=== PATIENT | female | born 1990 | race Caucasian/White ===

== ENCOUNTER 2021-08-06 19:38 | Emergency (ER) | payer OTHER, SELFPAY ==
[~2021-08-06] VITALS: Ht 152.4 cm; Wt 49.9 kg
[~2021-08-06 19:38] MED LIST: AMOX-423 PO
[2021-08-06 20:22] VITALS: BP_SYST 127
[2021-08-06] MEDS ORDERED: NACL 0.9% 1,000 ML IV ONE (20:45)
[2021-08-06] MEDS ORDERED: ONDANSETRON HCL 4 MG/2 ML VIAL IVP ONE (20:45)
[2021-08-06] MEDS ORDERED: MORPHINE 4 MG INJ. 4 MG/ML VIAL IVP ONE (20:45)
[2021-08-06] MEDS ORDERED: DIATR MEGLU/DIATRIZ SOD 30 ML SOLUTION PO ONE (20:58)
[2021-08-06 21:15] LABS: HEMOGLOBIN 12.1 g/dL (12.0-16.0); MEAN CORPUSCULAR HEMOGLOBIN 29 pg (27-31); MEAN CORPUSCULAR HGB CONC 34 % (32-36); MEAN CORPUSCULAR VOLUME 87 fL (79.0-98.0); PLATELET COUNT (AUTO) 727 K/uL (130-430); RED BLOOD CELL COUNT(AUTO) 4.15 MIL/uL (4.2-6.2); RED CELL DISTRIBUTION WIDTH 14.4 % (9.0-15.0)
--- NOTE | 2021-08-06 21:20 | NUR ---
Pt given medication Zofran and Morphine for nausea and pain and noted effective. Noted sleeping at this time. VSS. No signs of acute distress.
[2021-08-06 21:30] LABS: CALCIUM 10.2 mg/dL (8.4-11.0); CREATININE 0.59 mg/dL (0.55-1.30); POTASSIUM 4.8 mmol/L (3.5-5.1)
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
[2021-08-06 21:36] LABS: TOTAL BILIRUBIN 0.2 mg/dL (0.0-1.0)
[2021-08-06 21:42] LABS: ATYPICAL LYMPHOCYTES % 3 % (0-0); BAND % (MANUAL) 3 % (0-6); BASOPHILS % (MANUAL) 0 % (0-2); EOSINOPHILS % (MANUAL) 0 % (0-7); LYMPHOCYTES % (MANUAL) 17 % (20-46); MONOCYTES % (MANUAL) 6 % (0-11)
[2021-08-06 22:28] LABS: BILIRUBIN,URINE NEGATIVE (NEGATIVE); BLOOD, URINE NEGATIVE (NEGATIVE); CLARITY/URINE CLEAR (CLEAR); COLOR,URINE YELLOW (YELLOW); GLUCOSE,URINE NEGATIVE (NEGATIVE); KETONES,URINE NEGATIVE (NEGATIVE); LEUKOCYTE ESTERASE ,URINE NEGATIVE (NEGATIVE); NITRITE, URINE NEGATIVE (NEGATIVE); PH,URINE 6.5 (5.0-8.0); PROTEIN URINE NEGATIVE (NEGATIVE); UROBILINOGEN,URINE 0.2 (0.2-1.0)
[2021-08-06] MEDS ORDERED: PIPERACILLIN/TAZO 3.375 GM in NS 50 ML IV ONE (23:15)
[2021-08-06] MEDS ORDERED: NS 500 ML IV ONE (23:15)
[2021-08-06] MEDS ORDERED: PIPERACILLIN/TAZOBACTAM 3.375 GM/VIAL (ZOSYN) IV ONE (23:53)
--- NOTE | 2021-08-07 01:30 | NUR ---
Admit bed requested Patient will be admitted to care of . Admitted to Tele unit. Diagnosis Small Bowel Obstruction Inpatient (Yes or No) Y Observation (Yes or No) Y Orientation concerns or request close to nursing station (Yes or No) N Covid Status NEG On vent or bipap N Isolation requirements N Needs a sitter N From Home (Yes or if No enter name of facility) HOME Requires Dialysis (Yes or No) N Med Rec Completed (Yes of No)
[2021-08-07 02:00] VITALS: BP_SYST 116
[2021-08-07] MEDS ORDERED: MORPHINE 2 MG/ML INJ. SYRINGE ONE (02:17)
[2021-08-07] MEDS ORDERED: ONDANSETRON HCL 4 MG/2 ML VIAL ONE (02:19)
[2021-08-07] MEDS ORDERED: MORPHINE 2 MG/ML INJ. SYRINGE IVP ONE ×2 (02:30)
[2021-08-07] MEDS ORDERED: ONDANSETRON HCL 4 MG/2 ML VIAL IVP ONE ×2 (02:30)
--- NOTE | 2021-08-07 02:32 | NUR ---
Patient does not wish to proceed with medical care recommended by MD Billings. Patient given information related to possible complications, up to and including , which could occur as a result of leaving hospital at this time. Patient verbalizes understanding of risks involved leaving against medical advice. Patient has signed AMA form.
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
== END 2021-08-07 02:33 | disposition left against medical advice (07) ==
LOC: SED 19:38
DX: K56.609 Unspecified intestinal obstruction, unspecified as to partial versus complete obstruction (principal); R65.10 Systemic inflammatory response syndrome (SIRS) of non-infectious origin without acute organ dysfunction; Z20.822 Contact with and (suspected) exposure to COVID-19
CPT/HCPCS: 36415; 74177; 76376; 80053; 81003; 81025; 83605; 83690; 85007; 85027; 87040; 87426; 96361; 96365; 96375; 96376; 99285; J2270 ×2; J2405 ×2; J2543; J7030; Q9964; Q9967